=== PATIENT | male | born 1990 ===

== ENCOUNTER → 2018-01-06 | Outpatient (CLI) | payer BC ==
[~2018-01-06] MED LIST: CEPH500 PO; CRUTCH4 USE; HYDACE5 PO; IBUP800 PO; SULTRIDS PO
[2018-01-09 00:13] LABS: CHLAMYDIA TRACHOMATIS, NAA Negative (Negative); NEISSERIA GONORRHOEAE, NAA Negative (Negative)
== END ==
LOC: LAB SHORT 16:35 → LAB 16:35
PROVIDERS: Registered Nurse Community Health
DX: Z11.3 Encounter for screening for infections with a predominantly sexual mode of transmission (principal)
CPT/HCPCS: 87491; 87591

== ENCOUNTER 2020-02-21 08:26 | Day surgery (SDC) | payer BC ==
[~2020-02-21 08:26] MED LIST changes: +Crutch1 EACH MISC
== END 2020-02-21 23:19 | disposition home or self-care (01) ==
LOC: MOI RAD 08:26 → MOI MRI 10:00 → MOI RAD 23:19
DX: M25.311 Other instability, right shoulder (principal)
CPT/HCPCS: 20610; 73222; 77002; A9577; Q9967